=== PATIENT | female | born 1970 | race Caucasian/White ===

== ENCOUNTER → 2021-04-13 | Outpatient (CLI) | payer OTHER | LOC: MRI 04-07 08:30 | DX: G37.9 Demyelinating disease of central nervous system, unspecified (principal); M50.222 Other cervical disc displacement at C5-C6 level; M47.814 Spondylosis without myelopathy or radiculopathy, thoracic region; R90.82 White matter disease, unspecified | CPT/HCPCS: 70553; 72156; 72157; A9577 ==